=== PATIENT | female | born 1945 | race Caucasian/White ===

== ENCOUNTER 2021-09-30 16:15 | Emergency (ER) | payer SELFPAY ==
[~2021-09-30] VITALS: Ht 167.6 cm; Wt 68.2 kg
[2021-09-30 16:58] LABS: BASOPHILS % (AUTO) 0.7 % (0-1); EOSINOPHILS # (AUTO) 0.1 X10'3 (0-0.9); HEMATOCRIT 39.6 % (35.0-45.0); HEMOGLOBIN 12.9 g/dl (12.0-16.0); LYMPHOCYTES # (AUTO) 0.8 X10'3 (1.1-4.8); LYMPHOCYTES % (AUTO) 12.5 % (21-51); MEAN CORPUSCULAR HEMOGLOBIN 27.1 PG (27.0-31.0); MEAN CORPUSCULAR HGB CONC 32.5 g/dL (33.0-36.5); MEAN CORPUSCULAR VOLUME 83.4 FL (78-98); MONOCYTES # (AUTO) 0.3 X10'3 (0-0.9); MONOCYTES % (AUTO) 5.2 % (2-12); NEUTROPHILS # (AUTO) 4.9 X10'3 (1.8-7.7); NEUTROPHILS % (AUTO) 80.6 % (42-75); PLATELET COUNT 185 X10'3 (140-440); RED BLOOD COUNT 4.74 X10'6 (4.20-5.60); RED CELL DISTRIBUTION WIDTH 16.8 % (11.5-14.5)
[2021-09-30 17:29] LABS: ALANINE AMINOTRANSFERASE 61 U/L (12-78); ALBUMIN 3.3 G/DL (3.4-5.0); ALBUMIN/GLOBULIN RATIO 1.2 (1.1-1.5); ANION GAP 12 (8-16); ASPARTATE AMINO TRANSFERASE 59 U/L (10-37); BILIRUBIN,TOTAL 0.8 MG/DL (0.1-1.0); BLOOD UREA NITROGEN 23 MG/DL (7-18); BUN/CREATININE RATIO 22.3 (6.6-38.0); CALCIUM 8.9 MG/DL (8.5-10.1); CHLORIDE 106 MMOL/L (99-107); CREATININE 1.03 MG/DL (0.40-0.90); GLUCOSE 125 MG/DL (70-104); POTASSIUM 4.1 MMOL/L (3.5-5.1); SODIUM 144 MMOL/L (135-145); TOTAL CARBON DIOXIDE 25.9 MMOL/L (24-32); eGFR 52 ML/MIN
[2021-09-30 20:08] VITALS: BP 175/107
== END 2021-09-30 20:59 | disposition home or self-care (01) ==
LOC: ER 16:16
DX: I50.9 Heart failure, unspecified (principal); R06.02 Shortness of breath; M79.89 Other specified soft tissue disorders; M19.90 Unspecified osteoarthritis, unspecified site; Z98.890 Other specified postprocedural states
CPT/HCPCS: 36415; 71045; 80053; 83880; 85025; 85610; 93005; 99285

== ENCOUNTER 2022-03-11 11:52 | Day surgery (SDC) | payer MEDICARE, OTHER ==
[~2022-03-11] VITALS: Ht 165.1 cm; Wt 65.7 kg
[2022-03-11] MEDS ORDERED: LIDOcaine 1%/PF 5ML 10 MG/ML VIAL SQ ONE (12:00)
[2022-03-11] MEDS ORDERED: albumin 25% 100mL bottle x 1 IV PRN (12:10)
[2022-03-11 12:19] VITALS: BP 126/89
[2022-03-11] MEDS ORDERED: CARV-50 PO (12:30)
[2022-03-11] MEDS ORDERED: APIX2.5T PO (12:30)
[2022-03-11] MEDS ORDERED: FURO20TA4 PO (12:30)
[2022-03-11] MEDS ORDERED: SACU1TAB PO (12:30)
[2022-03-11 13:01] VITALS: BP 136/101
[2022-03-11 13:15] VITALS: BP 146/93
[2022-03-11 13:30] VITALS: BP 136/101
[2022-03-11 13:45] VITALS: BP 147/102
[2022-03-11 14:00] VITALS: BP 143/94
== END 2022-03-11 14:10 | disposition home or self-care (01) ==
LOC: SSTAY O 11:52
PROVIDERS: ATTEND Radiology Diagnostic Radiology
DX: J90 Pleural effusion, not elsewhere classified (principal); I50.9 Heart failure, unspecified; I11.0 Hypertensive heart disease with heart failure; I48.91 Unspecified atrial fibrillation
CPT/HCPCS: 32555; 87811; J3490

== ENCOUNTER 2022-04-09 08:08 | Day surgery (SDC) | payer MEDICARE, OTHER ==
[~2022-04-09] VITALS: Ht 167.6 cm; Wt 66.4 kg
[~2022-04-09 08:08] MED LIST: APIX2.5T PO; CARV-50 PO; FURO20TA4 PO; SACU1TAB PO
[2022-04-09] MEDS ORDERED: albumin 25% 100mL bottle x 1 IV PRN (08:25)
[2022-04-09 08:38] VITALS: BP 138/95
[2022-04-09 09:35] VITALS: BP 143/90
[2022-04-09 09:50] VITALS: BP 157/91
[2022-04-09 10:05] VITALS: BP 156/94
== END 2022-04-09 10:10 | disposition home or self-care (01) ==
LOC: SSTAY O 08:08
PROVIDERS: ATTEND Radiology Vascular & Interventional Radiology
DX: J90 Pleural effusion, not elsewhere classified (principal); I11.0 Hypertensive heart disease with heart failure; I50.9 Heart failure, unspecified; I48.91 Unspecified atrial fibrillation; Z79.01 Long term (current) use of anticoagulants; Z79.899 Other long term (current) drug therapy; Z98.890 Other specified postprocedural states
CPT/HCPCS: 32554; 32555; 87811

== ENCOUNTER 2022-05-11 07:47 | Day surgery (SDC) | payer MEDICARE, OTHER ==
[~2022-05-11] VITALS: Ht 165.1 cm; Wt 66.3 kg
[2022-05-11] VITALS (7 sets, daily range): BP systolic 131–153; BP diastolic 73–83
[~2022-05-11 07:47] MED LIST changes: -APIX2.5T PO; +APIX5TAB3 PO
[2022-05-11] MEDS ORDERED: LIDOcaine 1% 30ml preserv. free vial SQ STA (08:13)
[2022-05-11] MEDS ORDERED: albumin 25% 100mL bottle x 1 IV PRN (08:55)
== END 2022-05-11 10:10 | disposition home or self-care (01) ==
LOC: SSTAY O 07:47
PROVIDERS: ATTEND Radiology Diagnostic Radiology
DX: J90 Pleural effusion, not elsewhere classified (principal); I11.0 Hypertensive heart disease with heart failure; I50.9 Heart failure, unspecified; I48.91 Unspecified atrial fibrillation; Z98.890 Other specified postprocedural states; Z79.899 Other long term (current) drug therapy
CPT/HCPCS: 32555; J3490

== ENCOUNTER 2022-05-25 08:20 | Day surgery (SDC) | payer MEDICARE, OTHER ==
[~2022-05-25] VITALS: Ht 167.6 cm; Wt 67.0 kg
[2022-05-25] VITALS (7 sets, daily range): BP systolic 114–135; BP diastolic 54–86
[2022-05-25] MEDS ORDERED: ASPI81TA52 PO (08:43)
[2022-05-26] MEDS ORDERED: pneumococcal 23-VAL P-sac vacc 25 mcg/0.5ml vial IMVAC ONE (12:00)
== END 2022-05-25 10:15 | disposition home or self-care (01) ==
LOC: SSTAY O 08:20
PROVIDERS: ATTEND Radiology Vascular & Interventional Radiology
DX: J90 Pleural effusion, not elsewhere classified (principal); I11.0 Hypertensive heart disease with heart failure; I50.9 Heart failure, unspecified; I48.91 Unspecified atrial fibrillation; Z79.01 Long term (current) use of anticoagulants; Z79.899 Other long term (current) drug therapy; Z98.890 Other specified postprocedural states
CPT/HCPCS: 32555; C1729; A4615

== ENCOUNTER 2022-06-09 08:06 | Day surgery (SDC) | payer MEDICARE, OTHER ==
[~2022-06-09] VITALS: Ht 165.1 cm; Wt 67.7 kg
[~2022-06-09 08:06] MED LIST changes: +ASPI81TA52 PO
[2022-06-09 08:30] VITALS: BP 142/80
[2022-06-09 09:09] VITALS: BP 141/95
[2022-06-09 09:24] VITALS: BP 144/93
[2022-06-09 09:39] VITALS: BP 152/99
== END 2022-06-09 09:45 | disposition home or self-care (01) ==
LOC: SSTAY O 08:06
PROVIDERS: ATTEND Radiology Vascular & Interventional Radiology
DX: J90 Pleural effusion, not elsewhere classified (principal); I11.0 Hypertensive heart disease with heart failure; I50.9 Heart failure, unspecified; I48.91 Unspecified atrial fibrillation; Z79.899 Other long term (current) drug therapy; Z98.890 Other specified postprocedural states
CPT/HCPCS: 32555; A4615

== ENCOUNTER 2022-06-23 07:54 | Day surgery (SDC) | payer MEDICARE, OTHER ==
[~2022-06-23] VITALS: Ht 165.1 cm; Wt 68.4 kg
[~2022-06-23 07:54] MED LIST changes: -APIX5TAB3 PO
[2022-06-23] MEDS ORDERED: LIDOcaine 1% 30ml preserv. free vial SQ STA (07:58)
[2022-06-23 08:20] VITALS: BP 130/68
[2022-06-23] MEDS ORDERED: APIX2.5T PO (08:20)
[2022-06-23] MEDS ORDERED: FURO-149 PO (08:21)
[2022-06-23] MEDS ORDERED: albumin 25% 100mL bottle x 1 IV PRN (08:35)
[2022-06-23 08:45] VITALS: BP 125/70
[2022-06-23 09:00] VITALS: BP 114/82
[2022-06-23 09:15] VITALS: BP 126/69
[2022-06-23 09:30] VITALS: BP 133/79
[2022-06-23 09:45] VITALS: BP 131/85
== END 2022-06-23 09:55 | disposition home or self-care (01) ==
LOC: SSTAY O 07:54
PROVIDERS: ATTEND Radiology Diagnostic Radiology
DX: J90 Pleural effusion, not elsewhere classified (principal); I11.0 Hypertensive heart disease with heart failure; I50.9 Heart failure, unspecified; I48.91 Unspecified atrial fibrillation
CPT/HCPCS: 32555; J3490

== ENCOUNTER 2022-07-06 08:50 | Day surgery (SDC) | payer MEDICARE, OTHER ==
[2022-07-06] VITALS (7 sets, daily range): BP systolic 108–133; BP diastolic 67–92
[~2022-07-06] VITALS: Ht 165.1 cm; Wt 66.0 kg
[~2022-07-06 08:50] MED LIST changes: +APIX2.5T PO; -ASPI81TA52 PO; +FURO-149 PO; -FURO20TA4 PO
[2022-07-06] MEDS ORDERED: LIDOcaine 1% 30ml preserv. free vial IJ STA (09:21)
[2022-07-06] MEDS ORDERED: SPIR25TA5 PO (10:19)
[2022-07-06] MEDS ORDERED: MAGN400C PO (10:19)
[2022-07-06] MEDS ORDERED: ASCO100T12 PO (10:19)
[2022-07-06] MEDS ORDERED: FURO20TA4 PO (10:19)
[2022-07-06] MEDS ORDERED: ERGO400C PO (10:19)
== END 2022-07-06 10:50 | disposition home or self-care (01) ==
LOC: SSTAY O 08:50
PROVIDERS: ATTEND Radiology Diagnostic Radiology
DX: J90 Pleural effusion, not elsewhere classified (principal); I11.0 Hypertensive heart disease with heart failure; I50.9 Heart failure, unspecified; I48.91 Unspecified atrial fibrillation; F10.10 Alcohol abuse, uncomplicated; Z79.01 Long term (current) use of anticoagulants; Z79.899 Other long term (current) drug therapy
CPT/HCPCS: 32555; A4615

== ENCOUNTER 2022-07-13 08:24 | Day surgery (SDC) | payer MEDICARE, OTHER ==
[~2022-07-13] VITALS: Ht 165.1 cm; Wt 66.2 kg
[~2022-07-13 08:24] MED LIST changes: +ASCO100T12 PO; +ERGO400C PO; -FURO-149 PO; +FURO20TA4 PO; +MAGN400C PO; +SPIR25TA5 PO
[2022-07-13] MEDS ORDERED: LIDOcaine 1% 30ml preserv. free vial SQ STA (08:39)
[2022-07-13 08:47] VITALS: BP 129/84
[2022-07-13 09:55] VITALS: BP 138/99
[2022-07-13 10:00] VITALS: BP 133/70
[2022-07-13 10:15] VITALS: BP 132/74
[2022-07-13 10:30] VITALS: BP 128/71
[2022-07-13 10:45] VITALS: BP 139/91
== END 2022-07-13 11:00 | disposition home or self-care (01) ==
LOC: SSTAY O 08:24
PROVIDERS: ATTEND Radiology Vascular & Interventional Radiology
DX: J90 Pleural effusion, not elsewhere classified (principal); I11.0 Hypertensive heart disease with heart failure; I50.9 Heart failure, unspecified; I48.91 Unspecified atrial fibrillation; Z79.899 Other long term (current) drug therapy; Z98.890 Other specified postprocedural states
CPT/HCPCS: 32555; J3490; A4615